=== PATIENT | male | born 1960 | race African-American/Black ===

== ENCOUNTER 2021-07-24 10:57 | Emergency (ER) | payer OTHER ==
[~2021-07-24] VITALS: Ht 170.2 cm; Wt 86.0 kg
[2021-07-24] MEDS ORDERED: NAPR-681 MT (11:44)
[2021-07-24] MEDS ORDERED: T3 PO (11:44)
[2021-07-24] MEDS ORDERED: KETOROLAC 30MG/ML VIAL IM NR (11:45)
[2021-07-24 12:07] VITALS: BP 150/78
== END 2021-07-24 12:08 | disposition home or self-care (01) ==
LOC: ER 10:57
DX: M23.300 Other meniscus derangements, unspecified lateral meniscus, right knee (principal); M25.461 Effusion, right knee; I10 Essential (primary) hypertension; E11.9 Type 2 diabetes mellitus without complications; E78.00 Pure hypercholesterolemia, unspecified; Z87.828 Personal history of other (healed) physical injury and trauma; Z98.890 Other specified postprocedural states; X50.1XXA Overexertion from prolonged static or awkward postures, initial encounter; Y93.89 Activity, other specified; Y92.018 Other place in single-family (private) house as the place of occurrence of the external cause
CPT/HCPCS: 96372; 99283; J1885

== ENCOUNTER 2021-11-05 05:46 | Emergency (ER) | payer MEDICAID, OTHER ==
[~2021-11-05] VITALS: Ht 170.2 cm; Wt 89.0 kg
[~2021-11-05 05:46] MED LIST: NAPR-681 MT; T3 PO
[2021-11-05 06:22] VITALS: BP 170/91
[2021-11-05] MEDS ORDERED: KETOROLAC 30MG/ML VIAL IM ONE (08:15)
== END 2021-11-05 19:37 | disposition home or self-care (01) ==
LOC: ER 05:57
DX: M25.461 Effusion, right knee (principal)
CPT/HCPCS: 96372; 99283; J1885

== ENCOUNTER 2021-11-16 10:20 | Emergency (ER) | payer MEDICAID, OTHER ==
[~2021-11-16] VITALS: Ht 165.1 cm; Wt 65.0 kg
[2021-11-16] MEDS ORDERED: KETOROLAC 30MG/ML VIAL IM ONE (10:45)
[2021-11-16] MEDS ORDERED: IBUP-2030 MT (11:23)
[2021-11-16 12:17] VITALS: BP 117/75
== END 2021-11-16 12:18 | disposition home or self-care (01) ==
LOC: ER 10:20
DX: M25.461 Effusion, right knee (principal); E11.9 Type 2 diabetes mellitus without complications; I10 Essential (primary) hypertension; Z98.890 Other specified postprocedural states
CPT/HCPCS: 96372; 99283; J1885

== ENCOUNTER 2024-05-30 16:32 | Emergency (ER) | payer MEDICAID, OTHER ==
[~2024-05-30] VITALS: Ht 172.7 cm; Wt 82.0 kg
[~2024-05-30 16:32] MED LIST changes: +IBUP-2030 MT
[2024-05-30 16:39] VITALS: TEMP 98.1; O2SAT 100
[2024-05-30] MEDS ORDERED: DEXAMETHASONE 10 MG/ML VIAL IM ONE (17:30)
[2024-05-30] MEDS ORDERED: DICL100G58 TP (17:34)
[2024-05-30] MEDS ORDERED: IBUP-2030 MT (17:34)
[2024-05-30 17:59] VITALS: BP 164/88; PULSE 88; RESP 20
[2024-05-30] MEDS: KETOROLAC 30MG/ML VIAL IM ONE (17:59)
[2024-05-30] MEDS: TRIAMCINOLONE ACETONIDE 40MG/ML 1ML VIAL IM ONE (18:00)
== END 2024-05-30 18:03 | disposition home or self-care (01) ==
LOC: ER 16:32
DX: M17.12 Unilateral primary osteoarthritis, left knee (principal); E11.9 Type 2 diabetes mellitus without complications; I25.2 Old myocardial infarction; I10 Essential (primary) hypertension; Z98.890 Other specified postprocedural states
CPT/HCPCS: 99284; 73562; 96372; J1885; J3301

== ENCOUNTER 2024-11-04 04:33 | Emergency (ER) | payer MEDICAID, OTHER ==
[~2024-11-04] VITALS: Ht 170.2 cm; Wt 81.0 kg
[~2024-11-04 04:33] MED LIST changes: +DICL100G58 TP
[2024-11-04 05:08] VITALS: O2SAT 100
[2024-11-04 05:43] VITALS: BP 158/86; PULSE 84; RESP 16; TEMP 97.9; O2SAT 100
[2024-11-04] MEDS ORDERED: CARB-274 EACH EAR (06:07)
[2024-11-04] MEDS ORDERED: OFLO5DRO4 LEFT EAR (06:07)
== END 2024-11-04 06:13 | disposition home or self-care (01) ==
LOC: ER 04:33
DX: H60.92 Unspecified otitis externa, left ear (principal); E11.9 Type 2 diabetes mellitus without complications; E78.00 Pure hypercholesterolemia, unspecified; I25.2 Old myocardial infarction; I10 Essential (primary) hypertension; Z98.890 Other specified postprocedural states
CPT/HCPCS: 69210; 99283; 99284

== ENCOUNTER 2024-12-02 15:08 | Emergency (ER) | payer OTHER ==
[~2024-12-02] VITALS: Ht 170.2 cm; Wt 83.0 kg
[~2024-12-02 15:08] MED LIST changes: +CARB-274 EACH EAR; +OFLO5DRO4 LEFT EAR
[2024-12-02 15:41] VITALS: O2SAT 97
[2024-12-02 18:30] VITALS: BP 155/70; PULSE 75; RESP 14; TEMP 36.2; O2SAT 99
== END 2024-12-02 18:41 | disposition home or self-care (01) ==
LOC: ER 15:08
DX: B34.9 Viral infection, unspecified (principal); F10.90 Alcohol use, unspecified, uncomplicated; Z79.1 Long term (current) use of non-steroidal anti-inflammatories (NSAID); Y90.9 Presence of alcohol in blood, level not specified
CPT/HCPCS: 99281